=== PATIENT | female | born 1995 | race Caucasian/White ===

== ENCOUNTER 2021-04-24 07:24 | Emergency (ER) | payer BC ==
--- NOTE | 2021-04-24 07:32 | EDM.PDOC ---
ED HPI GENERAL MEDICAL PROBLEM - General Chief Complaint: Eye Problems Stated Complaint: EYE PROBLEM Time Seen by Provider: 04/24/21 07:52 Source of Information: Reports: Patient History Limitations: Reports: No Limitations - History of Present Illness INITIAL COMMENTS - FREE TEXT/NARRATIVE: 25-year-old female presents to the ED with acute left thigh pain that awoke her during the night. No known injury or foreign body entering the eye although she thought she removed a hair from her eye last evening. She has rinsed the eye several times with water with no relief. She does wear contact lenses but has not worn them for several weeks. She is wearing eyeglasses at this time. She identifies no purulent drainage from the left eye. It is very sensitive to the light and she presents with a closed. Onset: Today, Sudden Onset Date: 04/24/21 Onset Time: 03:00 Duration: Hour(s):, Constant Location: Reports: Face (Stinging pain) Quality: Reports: Other (Sharp stabbing burning left eye pain) Severity: Severe (8 out of 10) Improves with: Reports: Rest (And keeping the eye closed) Worsens with: Reports: Other Context: Denies: Activity, Exercise, Lifting, Sick Contact, Trauma, Other Associated Symptoms: Reports: No Other Symptoms Treatments [employer]: Reports: Other (see below) (None.) left eye Pain Score (Numeric/FACES): 8 - Related Data Allergies Allergy/AdvReac Type Severity Reaction Status Date / Time No Known Allergies Allergy Verified 03/04/16 11:45 Home Meds: Home Meds Control 1 tab PO DAILY 03/04/16 [History] Erythromycin Base [Erythromycin 0.5% Ophth Oint] 3.5 gm EYELF ONETIME #1 tube 03/04/16 [Rx] FLUoxetine [PROzac] 0 mg PO DAILY 03/04/16 [History] Ketorolac [Acular 0.5% Ophth Soln] 0 ml EYELF QID PRN #1 bottle 03/04/16 [Rx] Past Medical History Psychiatric History: Reports: Anxiety, Depression - Past Surgical History HEENT Surgical History: Reports: Tonsillectomy Social & Family History - Caffeine Use Caffeine Use: Reports: Soda Other Caffeine Use: 1 can daily - Living Situation & Occupation Living situation: Reports: Single Occupation: Employed ED ROS GENERAL - Review of Systems Review Of Systems: See Below Constitutional: Reports: No Symptoms HEENT: Reports: Contact Lenses (She has not worn her contact lenses for the last 3 days), Eye Pain, Glasses (Left eye pain with excessive tearing from both eyes) Respiratory: Reports: No Symptoms Cardiovascular: Reports: No Symptoms Endocrine: Reports: No Symptoms GI/Abdominal: Reports: No Symptoms : Reports: No Symptoms Musculoskeletal: Reports: No Symptoms Skin: Reports: No Symptoms Neurological: Reports: No Symptoms Psychiatric: Reports: Anxiety, Depression ED EXAM GENERAL W FULL EYE - Physical Exam Exam: See Below Exam Limited By: No Limitations General Appearance: Alert, WD/WN, Moderate Distress, Other (Temperature is 36.2 degrees with heart rate of 71 and sinus respiratory 16 with O2 sats 100% room air. BP 108/68.) Eye Exam: Right Eye: Corneal Abrasion (Corneal abrasion patient on slit-lamp examination across the inferior portion of the mid cornea traveling towards the 3 o'clock position of the eye. It is at least 4 mm from the limbus. It appears very superficial and likely induced by a fingernail.), Bilateral Eye: Normal Inspection, PERRL Eyelids: Left: Normal Appearance, Lid Everted for Exam (No foreign bodies identified) Conjunctiva & Sclera: Bilateral: Normal Appearance Cornea Exam: Left: Corneal Abrasion (Across the inferior midline of the cornea traveling towards the 3 o'clock position.) Extraocular Movements: Bilateral: Intact Pupils: Normal Accommodation Pupillary Size: Bilateral: 6 mm Pupillary Reaction: Bilateral: Brisk Anterior Chamber: Bilateral: Normal Appearance Course - Vital Signs Last Recorded V/S: Last Vital Signs Temp 36.2 C 04/24/21 07:29 Pulse 71 04/24/21 07:29 Resp 16 04/24/21 07:29 BP 108/68 04/24/21 07:29 Pulse Ox 100 04/24/21 07:29 - Orders/Labs/Meds Meds: Medications Discontinued Medications Generic Name Dose Route Start Last Admin Trade Name Freq PRN Reason Stop Dose Admin Ciprofloxacin 5 ml 04/24/21 08:12 Ciprofloxacin 0.3% Ophth Soln 5 Ml Bottle EYELF 04/24/21 08:13 ONETIME ONE Ketorolac Tromethamine 2.5 ml 04/24/21 08:05 Ketorolac 0.5% Ophth Soln 5 Ml Bottle EYELF 04/24/21 08:06 ONETIME ONE - Radiology Interpretation Free Text/Narrative:: 25-year-old female presents to the ED with acute painful left eye. She woke in the night with pain in her left eye and its only worsened overnight. It is sharp stabbing and made worse by looking at light. She was examined with the eye closed. Anesthetized with topical proparacaine which relieved her pain completely. Inversion of the eyelid did not reveal any foreign body such as a eyelash. Cornea inspected with slit-lamp exam reveals a superficial corneal abrasion across the middle middle of the cornea traveling towards 3 o'clock position. It is quite wide and superficial and likely induced by a fingernail. There is some pitting or Carretta conjunctivitis of the cornea secondary to contact lens use. 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 In the interim she will be placed on ketorolac eyedrops 2 drops to the left eye every 6 hours as needed for relief of eye pain. Cipro ophthalmic drops 2 drops every 8 hours for 3 days to prevent secondary infection. Double patch left eye closed for the next 24 hours. Note given to excuse her from the workplace today. Departure - Departure Time of Disposition: 08:07 Disposition: Home, Self-Care 01 Condition: Fair Clinical Impression: Corneal abrasion, left Qualifiers: Encounter type: initial encounter Qualified Code(s): S05.02XA - Injury of conjunctiva and corneal abrasion without foreign body, left eye, initial encounter Corneal abrasion Qualifiers: Encounter type: initial encounter Laterality: left Qualified Code(s): S05.02XA - Injury of conjunctiva and corneal abrasion without foreign body, left eye, initial encounter - Discharge Information *PRESCRIPTION DRUG MONITORING PROGRAM REVIEWED*: Not Applicable *COPY OF PRESCRIPTION DRUG MONITORING REPORT IN PATIENT AGUSTIN: Not Applicable Instructions: Corneal Abrasion Referrals: Nikole Cantrell PA-C [Primary Care Provider] - Forms: ED Department Discharge, ED Return to Work/School Form Additional Instructions: Evaluation emergency room today in regards to acute left eye pain with excessive tearing and photophobia i.e. light sensitivity. No recent history of contact lens use. Examination under local anesthetic and slit-lamp exam reveals a superficial corneal abrasion in the midline and traveling towards the 3 o'clock position left eye. There is some pitting of the cornea which we call Carretta conjunctivitis which is secondary to the cornea getting dried out from contact lens use. 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 Treatment today was anesthetization with topical proparacaine anesthetic drops to relieve pain but this will wear off in the next 15 to 20 minutes. Use ketorolac drops 2 drops every 6 hours for the next day to bring pain under control. Use antibiotic eyedrops ciprofloxacin 2 drops every 8 hours for the next 3 days to prevent secondary infection. Double patch the left eye closed until tomorrow morning removing it only to place drops. Should be able to leave the patch off completely tomorrow. The eye may be somewhat sensitive to light for another 12 hours but it should then be returned to complete normality. If not you should be reviewed again by your delivery recruiter. Sepsis Event Note (ED) - Focused Exam Vital Signs: Vital Signs Temp Pulse Resp BP Pulse Ox 04/24/21 07:29 36.2 C 71 16 108/68 100
[2021-04-24 07:35] VITALS: BP 108/68; PULSE 71
[2021-04-24] MEDS ORDERED: Ketorolac 0.5% Ophth Soln 5 ML Bottle EYELF ONE (08:05)
[2021-04-24] MEDS ORDERED: Ciprofloxacin 0.3% Ophth Soln 5 ML Bottle EYELF ONE (08:12)
== END 2021-04-24 08:25 | disposition home or self-care (01) ==
LOC: JD.ED 07:24
DX: S05.02XA Injury of conjunctiva and corneal abrasion without foreign body, left eye, initial encounter (principal); X58.XXXA Exposure to other specified factors, initial encounter
CPT/HCPCS: 99283; A9270